=== PATIENT | female | born 1970 | race Caucasian/White ===

== ENCOUNTER → 2023-09-26 | Outpatient (REF) | payer BC ==
[~2023-09-26] MED LIST: IOPAMIDOL 370 MG/ML 100 ML INFUS..BTL INJ ONE
[2023-09-26 15:50] LABS: CREATININE, SERUM 1.21 mg/dL (0.57-1.11)
== END ==
LOC: CT 14:48
PROVIDERS: ATTEND Internal Medicine Interventional Cardiology
DX: I26.99 Other pulmonary embolism without acute cor pulmonale (principal)
CPT/HCPCS: 36415; 71260; 82565; 84520; Q9967